=== PATIENT | male | born 1965 | race Caucasian/White ===

== ENCOUNTER 2017-12-02 22:19 | Emergency (ER) | payer OTHER ==
[~2017-12-02] VITALS: Ht 182.9 cm; Wt 84.4 kg
[2017-12-02] MEDS ORDERED: CEPH500 PO (22:44)
[2017-12-03] MEDS ORDERED: Vibramycin100 MG PO (00:52)
== END 2017-12-03 00:58 | disposition home or self-care (01) ==
LOC: ER 22:19
DX: L03.115 Cellulitis of right lower limb (principal); Z79.2 Long term (current) use of antibiotics; Z87.891 Personal history of nicotine dependence
CPT/HCPCS: 73610; 93971; 99284-25